=== PATIENT | male | born 1980 | race African-American/Black ===

== ENCOUNTER 2017-11-30 17:40 | Emergency (ER) | payer OTHER ==
[2017-11-30 18:02] VITALS: BP 136/90; PULSE 97; TEMP 99.7; BMI 34.2
[2017-11-30] MEDS ORDERED: IBUPROFEN 600 MG TABLET (FP) PO ONE ×2 (18:02→18:07)
[2017-11-30] MEDS ORDERED: ACETAMINOPHEN 500 MG TABLET (FP) PO ONE (18:02)
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
[2017-11-30] MEDS ORDERED: ACETAMINOPHEN 325 MG TABLET (FP) ONE (18:07)
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
== END 2017-11-30 18:45 | disposition home or self-care (01) ==
LOC: FER 17:40
DX: K08.89 Other specified disorders of teeth and supporting structures (principal); W25.XXXA Contact with sharp glass, initial encounter; Y93.89 Activity, other specified; Y92.159 Unspecified place in reform school as the place of occurrence of the external cause; Y99.0 Civilian activity done for income or pay; F17.210 Nicotine dependence, cigarettes, uncomplicated
CPT/HCPCS: 99281-25